=== PATIENT | female | born 1975 | race Two or more races ===

== ENCOUNTER 2021-07-12 13:16 | Inpatient (IN) | payer MEDICAID, OTHER ==
[~2021-07-12] VITALS: Ht 154.9 cm; Wt 107.1 kg
[2021-07-12] MEDS ORDERED: AZITHROMYCIN 500MG/ 250ML 250 ML IV ONE (14:30)
[2021-07-12] MEDS ORDERED: ALBUTEROL SULF 2.5 MG/0.5ML(0.5%) NEB SOLN NEB ONE (14:30)
[2021-07-12] MEDS ORDERED: IPRATROPIUM BROM 0.5 MG/2.5ML INH SOL NEB ONE (14:30)
[2021-07-12] MEDS ORDERED: DexAMETHasone SOD PHOS 10MG/1ML VIAL INJ IV ONE (14:30)
[2021-07-12 15:06] LABS: Basophils # (auto) 0 10 ^3/uL (0-0.2); Basophils % (auto) 0.4 % (0.0-2.0); Eosinophils # (auto) 0 10 ^3/uL (0-0.8); Hematocrit 41.3 % (36.0-46.0); Hemoglobin 13.6 g/dL (12.2-16.2); Lymphocytes # (auto) 0.6 10 ^3/uL (0.4-5.4); Lymphocytes % (auto) 8.7 % (10.0-50.0); Mean Corpuscular Hemoglobin 28.5 pg (28.0-32.0); Mean Corpuscular Hgb Conc. 32.9 g/dL (32.0-36.0); Mean Corpuscular Volume 86.6 fL (80.0-100.0); Monocytes # (auto) 0.5 10 ^3/uL (0-1.3); Monocytes % (auto) 7.6 % (0.0-12.0); Neutrophils # (auto) 5.3 10 ^3/uL (1.6-8.6); Neutrophils % (auto) 83.3 % (37.0-80.0); Nucleated Red Blood Cells % 0.1 %; Red Blood Cells 4.77 10^6/uL (4.0-5.20); Red Cell Distribution Width 13.8 % (11.8-14.3); White Blood Cell 6.4 10^3/uL (4.4-10.8)
[2021-07-12 15:22] LABS: Albumin 3.3 g/dL (3.4-5.0); BUN/Creatinine Ratio 11.6; Calcium 8.3 mg/dL (8.5-10.1); Potassium 3.5 mmol/L (3.5-5.1)
[2021-07-12 15:24] LABS: Bilirubin, Total 0.2 mg/dL (0.2-1.0); Total Protein 8.5 g/dL (6.4-8.2)
[2021-07-12] MEDS ORDERED: HYDROcodone-ACET 5/325MG TAB PO PRN (17:45)
[2021-07-12] MEDS ORDERED: ACETAMINOPHEN 325 MG TAB PO PRN (17:45)
[2021-07-12] MEDS ORDERED: ALUM & MAG HYDROX-SIMETH LIQ(MAALOX) 30 ML PO PRN (17:45)
[2021-07-12] MEDS ORDERED: NITROGLYCERIN 0.4 MG SL TAB SL PRN (17:45)
[2021-07-12] MEDS ORDERED: REMDESIVIR PER PHARMACY 0 ML IV SCH (17:45)
[2021-07-12] MEDS ORDERED: DEXTROSE (50%) 50ML SYRG IV PRN (17:45)
[2021-07-12] MEDS ORDERED: ONDANSETRON HCL 4 MG/2 ML VIAL IV PRN (17:45)
[2021-07-12] MEDS ORDERED: DOCUSATE SOD 100 MG CAP PO PRN (17:45)
[2021-07-12] MEDS ORDERED: MORPHINE SULFATE INJECTION 2 MG/ML SYRG IV PRN ×2 (17:45)
[2021-07-12] MEDS ORDERED: ACETAMINOPHEN 500 MG TAB PO PRN (17:45)
[2021-07-12] MEDS: SODIUM CHLORIDE 0.9% 1,000 ML IV SCH ×2 (19:41→19:51)
[2021-07-12 20:14] LABS: Magnesium 2.4 mg/dL (1.6-2.6)
[2021-07-12 20:23] LABS: CRP High Sensitivity 3.54 mg/dL (< 0.3)
[2021-07-12 20:31] LABS: Thyroid Stimulating Hormone 0.83 uIU/mL (0.358-3.74)
[2021-07-12] MEDS: BUDESONIDE (INHALATION) 180 MCG IH IN SCH (20:44)
[2021-07-12] MEDS ORDERED: REMDESIVIR 200 MG in NS 210ml LOADING DOSE ADULT IV ONE (21:00)
[2021-07-12] MEDS: ACCU-CHEK COMFORT CURVE STRIP VI SCH (22:40)
[2021-07-12] MEDS: InsuLIN REG 1unit/0.01ml Soln (100units/ml) SC SCH (22:49)
[2021-07-12] MEDS: ENOXAPARIN SOD 40 MG/0.4 ML SYRINGE SC SCH (22:50)
[2021-07-12] MEDS: FAMOTIDINE 20 MG TAB PO SCH (22:50)
[2021-07-13 04:47] VITALS: BP 122/57
[2021-07-13] MEDS: ACCU-CHEK COMFORT CURVE STRIP VI SCH ×4 (06:58→21:39)
[2021-07-13] MEDS: InsuLIN REG 1unit/0.01ml Soln (100units/ml) SC SCH ×4 (07:02→21:48)
[2021-07-13] MEDS ORDERED: METO25TA93 PO (07:37)
[2021-07-13] MEDS ORDERED: METF-370 PO (07:37)
[2021-07-13] MEDS ORDERED: LOSA-39 PO (07:37)
[2021-07-13 07:59] LABS: Basophils # (auto) 0 10 ^3/uL (0-0.2); Basophils % (auto) 0.1 % (0.0-2.0); Eosinophils # (auto) 0 10 ^3/uL (0-0.8); Hematocrit 39.4 % (36.0-46.0); Hemoglobin 13.1 g/dL (12.2-16.2); Lymphocytes % (auto) 15.7 % (10.0-50.0); Mean Corpuscular Hemoglobin 28.5 pg (28.0-32.0); Mean Corpuscular Hgb Conc. 33.3 g/dL (32.0-36.0); Mean Corpuscular Volume 85.6 fL (80.0-100.0); Monocytes # (auto) 0.7 10 ^3/uL (0-1.3); Monocytes % (auto) 10.6 % (0.0-12.0); Neutrophils # (auto) 4.6 10 ^3/uL (1.6-8.6); Neutrophils % (auto) 73.6 % (37.0-80.0); Nucleated Red Blood Cells % 0.1 %; Red Cell Distribution Width 13.5 % (11.8-14.3); White Blood Cell 6.2 10^3/uL (4.4-10.8)
[2021-07-13 08:00] LABS: Potassium 3.9 mmol/L (3.5-5.1)
[2021-07-13 08:05] LABS: Albumin 3.1 g/dL (3.4-5.0); BUN/Creatinine Ratio 19.2; Bilirubin, Total 0.5 mg/dL (0.2-1.0); Total Protein 7.2 g/dL (6.4-8.2)
[2021-07-13 09:00] VITALS: BP 145/83
[2021-07-13] MEDS: BUDESONIDE (INHALATION) 180 MCG IH IN SCH ×2 (09:38→22:00)
[2021-07-13] MEDS: DexAMETHasone SOD PHOS 10MG/1ML VIAL INJ IV SCH (09:55)
[2021-07-13] MEDS: ZINC SULFATE 220mg CAP or TAB PO SCH (09:55)
[2021-07-13] MEDS: CHOLECALCIFEROL (VITD3) 2,000 UNIT CAP/TAB PO SCH (09:56)
[2021-07-13] MEDS: ASCORBIC ACID 1,000 MG TAB PO SCH (09:56)
[2021-07-13] MEDS: FAMOTIDINE 20 MG TAB PO SCH ×2 (09:56→21:38)
[2021-07-13] MEDS: ENOXAPARIN SOD 40 MG/0.4 ML SYRINGE SC SCH ×2 (09:57→21:38)
[2021-07-13] MEDS ORDERED: AZITHROMYCIN 500MG/ 250ML 250 ML IV SCH (10:00)
[2021-07-13] MEDS: cefTRIAXone 1GM/50ML D5W 50 ML IV SCH (10:08)
[2021-07-13] MEDS: AZITHROMYCIN 500MG/ 250ML 250 ML IV SCH (11:13)
[2021-07-13] MEDS ORDERED: LOSARTAN POTASSIUM 50 MG TAB PO ONE (11:45)
[2021-07-13] MEDS ORDERED: METOPROLOL SUCCINATE XL 50 MG TAB PO ONE (11:45)
[2021-07-13 13:00] VITALS: BP 132/61
[2021-07-13] MEDS: REMDESIVIR 100mg 100 MG in SODIUM CHL 0.9% 230 ML IV SCH (16:43)
[2021-07-13 17:00] VITALS: BP 119/63
[2021-07-13] MEDS: SODIUM CHLORIDE 0.9% 1,000 ML IV SCH (21:40)
[2021-07-13 22:00] VITALS: BP 136/74
[2021-07-14] MEDS: ALBUTEROL SULF HFA 90MCG INH 200DOSE IN PRN ×2 (01:31→11:49)
[2021-07-14 05:00] VITALS: BP 127/59
[2021-07-14] MEDS: ACCU-CHEK COMFORT CURVE STRIP VI SCH ×4 (06:05→21:42)
[2021-07-14] MEDS: InsuLIN REG 1unit/0.01ml Soln (100units/ml) SC SCH ×4 (06:05→21:49)
[2021-07-14 06:52] LABS: Potassium 3.5 mmol/L (3.5-5.1)
[2021-07-14 06:59] LABS: Albumin 2.8 g/dL (3.4-5.0); BUN/Creatinine Ratio 21.1; Calcium 8.4 mg/dL (8.5-10.1)
[2021-07-14 07:01] LABS: Bilirubin, Total 0.3 mg/dL (0.2-1.0); Total Protein 7.4 g/dL (6.4-8.2)
[2021-07-14 09:00] VITALS: BP 134/69
[2021-07-14] MEDS ORDERED: METOPROLOL SUCCINATE XL 50 MG TAB PO SCH (10:00)
[2021-07-14] MEDS: cefTRIAXone 1GM/50ML D5W 50 ML IV SCH (10:17)
[2021-07-14] MEDS: DexAMETHasone SOD PHOS 10MG/1ML VIAL INJ IV SCH (10:17)
[2021-07-14] MEDS: LOSARTAN POTASSIUM 50 MG TAB PO SCH (10:18)
[2021-07-14] MEDS: FAMOTIDINE 20 MG TAB PO SCH ×2 (10:18→21:42)
[2021-07-14] MEDS: ENOXAPARIN SOD 40 MG/0.4 ML SYRINGE SC SCH ×2 (10:19→21:42)
[2021-07-14] MEDS: ASCORBIC ACID 1,000 MG TAB PO SCH (10:19)
[2021-07-14] MEDS: LORazepam 0.5 MG TAB PO PRN ×2 (10:19→21:49)
[2021-07-14] MEDS: CHOLECALCIFEROL (VITD3) 2,000 UNIT CAP/TAB PO SCH (10:19)
[2021-07-14] MEDS: ZINC SULFATE 220mg CAP or TAB PO SCH (10:28)
[2021-07-14] MEDS: AZITHROMYCIN 500MG/ 250ML 250 ML IV SCH (10:28)
[2021-07-14] MEDS: BUDESONIDE (INHALATION) 180 MCG IH IN SCH ×2 (11:48→23:43)
[2021-07-14] MEDS ORDERED: GLUCAGON HYDROCHLORIDE (RDNA) 1 MG VIAL IV ONE ×2 (12:15→12:45)
[2021-07-14 13:00] VITALS: BP 133/75
[2021-07-14 17:00] VITALS: BP 127/74
[2021-07-14] MEDS: REMDESIVIR 100mg 100 MG in SODIUM CHL 0.9% 230 ML IV SCH (17:12)
[2021-07-14 22:00] VITALS: BP 130/77
[2021-07-15] MEDS: SODIUM CHLORIDE 0.9% 1,000 ML IV SCH (00:31)
[2021-07-15] MEDS: LORazepam 0.5 MG TAB PO PRN ×2 (04:20→19:15)
[2021-07-15 05:27] VITALS: BP 110/64
[2021-07-15] MEDS: InsuLIN REG 1unit/0.01ml Soln (100units/ml) SC SCH ×4 (06:31→21:33)
[2021-07-15] MEDS: ACCU-CHEK COMFORT CURVE STRIP VI SCH ×4 (06:31→21:31)
[2021-07-15] MEDS: BUDESONIDE (INHALATION) 180 MCG IH IN SCH ×2 (06:50→19:43)
[2021-07-15 07:46] LABS: Basophils # (auto) 0 10 ^3/uL (0-0.2); Basophils % (auto) 0.3 % (0.0-2.0); Eosinophils # (auto) 0 10 ^3/uL (0-0.8); Hematocrit 38.2 % (36.0-46.0); Hemoglobin 12.6 g/dL (12.2-16.2); Lymphocytes # (auto) 1.2 10 ^3/uL (0.4-5.4); Lymphocytes % (auto) 9.5 % (10.0-50.0); Mean Corpuscular Hemoglobin 28.3 pg (28.0-32.0); Mean Corpuscular Hgb Conc. 33.1 g/dL (32.0-36.0); Mean Corpuscular Volume 85.3 fL (80.0-100.0); Monocytes # (auto) 1.1 10 ^3/uL (0-1.3); Monocytes % (auto) 8.6 % (0.0-12.0); Neutrophils # (auto) 10.6 10 ^3/uL (1.6-8.6); Neutrophils % (auto) 81.6 % (37.0-80.0); Red Blood Cells 4.47 10^6/uL (4.0-5.20); Red Cell Distribution Width 13.5 % (11.8-14.3)
[2021-07-15] MEDS: ALBUTEROL SULF HFA 90MCG INH 200DOSE IN PRN ×2 (08:36→19:43)
[2021-07-15 08:48] VITALS: BP 133/67
[2021-07-15 09:12] LABS: Albumin 2.7 g/dL (3.4-5.0); Calcium 7.9 mg/dL (8.5-10.1); Potassium 3.7 mmol/L (3.5-5.1)
[2021-07-15 09:14] LABS: BUN/Creatinine Ratio 23.5
[2021-07-15 09:17] LABS: Bilirubin, Total 0.4 mg/dL (0.2-1.0); Total Protein 6.6 g/dL (6.4-8.2)
[2021-07-15] MEDS: cefTRIAXone 1GM/50ML D5W 50 ML IV SCH (11:00)
[2021-07-15] MEDS: ZINC SULFATE 220mg CAP or TAB PO SCH (11:00)
[2021-07-15] MEDS: DexAMETHasone SOD PHOS 10MG/1ML VIAL INJ IV SCH (11:00)
[2021-07-15] MEDS: LOSARTAN POTASSIUM 50 MG TAB PO SCH (11:01)
[2021-07-15] MEDS: ASCORBIC ACID 1,000 MG TAB PO SCH (11:01)
[2021-07-15] MEDS: CHOLECALCIFEROL (VITD3) 2,000 UNIT CAP/TAB PO SCH (11:01)
[2021-07-15] MEDS: FAMOTIDINE 20 MG TAB PO SCH ×2 (11:01→21:31)
[2021-07-15] MEDS: ENOXAPARIN SOD 40 MG/0.4 ML SYRINGE SC SCH ×2 (11:02→21:31)
[2021-07-15] MEDS: AZITHROMYCIN 500MG/ 250ML 250 ML IV SCH (12:34)
[2021-07-15 12:56] VITALS: BP 133/70
[2021-07-15] MEDS: REMDESIVIR 100mg 100 MG in SODIUM CHL 0.9% 230 ML IV SCH (15:45)
[2021-07-15 17:00] VITALS: BP 144/69
[2021-07-15 22:00] VITALS: BP 128/62
[2021-07-16 05:27] VITALS: BP 120/52
[2021-07-16] MEDS: ALBUTEROL SULF HFA 90MCG INH 200DOSE IN PRN ×2 (06:01→20:17)
[2021-07-16] MEDS: BUDESONIDE (INHALATION) 180 MCG IH IN SCH ×2 (06:01→20:17)
[2021-07-16] MEDS: InsuLIN REG 1unit/0.01ml Soln (100units/ml) SC SCH ×4 (06:36→21:42)
[2021-07-16] MEDS: ACCU-CHEK COMFORT CURVE STRIP VI SCH ×4 (06:36→21:38)
[2021-07-16 07:43] LABS: Basophils # (auto) 0 10 ^3/uL (0-0.2); Basophils % (auto) 0.1 % (0.0-2.0); Eosinophils # (auto) 0 10 ^3/uL (0-0.8); Eosinophils % (auto) 0.1 % (0.0-7.0); Hematocrit 37.7 % (36.0-46.0); Hemoglobin 12.2 g/dL (12.2-16.2); Lymphocytes # (auto) 1.3 10 ^3/uL (0.4-5.4); Lymphocytes % (auto) 12.5 % (10.0-50.0); Mean Corpuscular Hemoglobin 27.6 pg (28.0-32.0); Mean Corpuscular Hgb Conc. 32.4 g/dL (32.0-36.0); Mean Corpuscular Volume 85.4 fL (80.0-100.0); Monocytes # (auto) 1.1 10 ^3/uL (0-1.3); Neutrophils # (auto) 8.1 10 ^3/uL (1.6-8.6); Neutrophils % (auto) 77.3 % (37.0-80.0); Red Blood Cells 4.41 10^6/uL (4.0-5.20); Red Cell Distribution Width 13.3 % (11.8-14.3); White Blood Cell 10.5 10^3/uL (4.4-10.8)
[2021-07-16 07:54] LABS: Albumin 2.4 g/dL (3.4-5.0); BUN/Creatinine Ratio 18.5; Calcium 8.4 mg/dL (8.5-10.1); Potassium 3.4 mmol/L (3.5-5.1)
[2021-07-16 07:56] LABS: Bilirubin, Total 0.4 mg/dL (0.2-1.0); Total Protein 6.8 g/dL (6.4-8.2)
[2021-07-16 09:00] VITALS: BP 128/64
[2021-07-16] MEDS ORDERED: POTASSIUM EFFERVESENT TAB 25 MEQ GT ONE (09:45)
[2021-07-16] MEDS: cefTRIAXone 1GM/50ML D5W 50 ML IV SCH (09:47)
[2021-07-16] MEDS: DexAMETHasone SOD PHOS 10MG/1ML VIAL INJ IV SCH (09:47)
[2021-07-16] MEDS: ZINC SULFATE 220mg CAP or TAB PO SCH (09:47)
[2021-07-16] MEDS: FAMOTIDINE 20 MG TAB PO SCH ×2 (09:54→21:49)
[2021-07-16] MEDS ORDERED: DEXA4TAB90 PO (09:54)
[2021-07-16] MEDS ORDERED: CHOL1CAP47 PO (09:54)
[2021-07-16] MEDS ORDERED: ASCO10003 PO (09:54)
[2021-07-16] MEDS: ASCORBIC ACID 1,000 MG TAB PO SCH (09:54)
[2021-07-16] MEDS: LOSARTAN POTASSIUM 50 MG TAB PO SCH (09:54)
[2021-07-16] MEDS ORDERED: ALBUAER3 IN (09:54)
[2021-07-16] MEDS: CHOLECALCIFEROL (VITD3) 2,000 UNIT CAP/TAB PO SCH (09:55)
[2021-07-16] MEDS: ENOXAPARIN SOD 40 MG/0.4 ML SYRINGE SC SCH ×2 (09:55→21:49)
[2021-07-16] MEDS ORDERED: POTASSIUM EFFERVESENT TAB 25 MEQ PO ONE (10:15)
[2021-07-16] MEDS: AZITHROMYCIN 500MG/ 250ML 250 ML IV SCH (11:29)
[2021-07-16 13:00] VITALS: BP 104/62
[2021-07-16] MEDS: REMDESIVIR 100mg 100 MG in SODIUM CHL 0.9% 230 ML IV SCH (15:04)
[2021-07-16 16:57] VITALS: BP 137/88
[2021-07-16 22:00] VITALS: BP 145/71
[2021-07-17] MEDS: LORazepam 0.5 MG TAB PO PRN (03:11)
[2021-07-17 04:45] VITALS: BP 132/80
[2021-07-17] MEDS: ACCU-CHEK COMFORT CURVE STRIP VI SCH ×2 (06:35→11:21)
[2021-07-17] MEDS: InsuLIN REG 1unit/0.01ml Soln (100units/ml) SC SCH ×2 (06:36→11:33)
[2021-07-17 07:06] LABS: Basophils # (auto) 0 10 ^3/uL (0-0.2); Basophils % (auto) 0.2 % (0.0-2.0); Eosinophils # (auto) 0 10 ^3/uL (0-0.8); Hematocrit 37.3 % (36.0-46.0); Hemoglobin 12.2 g/dL (12.2-16.2); Lymphocytes # (auto) 1.1 10 ^3/uL (0.4-5.4); Lymphocytes % (auto) 13.3 % (10.0-50.0); Mean Corpuscular Hgb Conc. 32.8 g/dL (32.0-36.0); Mean Corpuscular Volume 85.4 fL (80.0-100.0); Monocytes % (auto) 11.2 % (0.0-12.0); Neutrophils # (auto) 6.4 10 ^3/uL (1.6-8.6); Neutrophils % (auto) 75.3 % (37.0-80.0); Red Blood Cells 4.37 10^6/uL (4.0-5.20); Red Cell Distribution Width 13.5 % (11.8-14.3); White Blood Cell 8.6 10^3/uL (4.4-10.8)
[2021-07-17 07:23] LABS: Potassium 3.3 mmol/L (3.5-5.1)
[2021-07-17 07:28] LABS: Albumin 2.5 g/dL (3.4-5.0); BUN/Creatinine Ratio 18.2; Bilirubin, Total 0.4 mg/dL (0.2-1.0); Calcium 8.1 mg/dL (8.5-10.1); Total Protein 6.8 g/dL (6.4-8.2)
[2021-07-17 09:00] VITALS: BP 131/67
[2021-07-17] MEDS: cefTRIAXone 1GM/50ML D5W 50 ML IV SCH (09:00)
[2021-07-17] MEDS: ZINC SULFATE 220mg CAP or TAB PO SCH (09:39)
[2021-07-17] MEDS: DexAMETHasone SOD PHOS 10MG/1ML VIAL INJ IV SCH (09:39)
[2021-07-17] MEDS: ASCORBIC ACID 1,000 MG TAB PO SCH (09:40)
[2021-07-17] MEDS: ENOXAPARIN SOD 40 MG/0.4 ML SYRINGE SC SCH (09:40)
[2021-07-17] MEDS: LOSARTAN POTASSIUM 50 MG TAB PO SCH (09:40)
[2021-07-17] MEDS: CHOLECALCIFEROL (VITD3) 2,000 UNIT CAP/TAB PO SCH (09:40)
[2021-07-17] MEDS: FAMOTIDINE 20 MG TAB PO SCH (09:40)
[2021-07-17] MEDS: BUDESONIDE (INHALATION) 180 MCG IH IN SCH (10:00)
[2021-07-17] MEDS: AZITHROMYCIN 500MG/ 250ML 250 ML IV SCH (10:12)
[2021-07-17] MEDS: ALBUTEROL SULF HFA 90MCG INH 200DOSE IN PRN (11:00)
[2021-07-17 12:59] VITALS: BP 113/54
== END 2021-07-17 15:00 | disposition home or self-care (01) | DRG 137 ==
LOC: ER 13:16 → TELE 17:42 → TELE-EAST 22:10
PROVIDERS: ADMIT Internal Medicine; ATTEND Internal Medicine Pulmonary Disease
PROC: XW033E5 Introduction of Remdesivir Anti-infective into Peripheral Vein, Percutaneous Approach, New Technology Group 5 (ICD-10-PCS; principal; 2021-07-12)
DX: U07.1 COVID-19 (principal); J96.01 Acute respiratory failure with hypoxia; J12.82 Pneumonia due to coronavirus disease 2019; E46 Unspecified protein-calorie malnutrition; J45.51 Severe persistent asthma with (acute) exacerbation; J90 Pleural effusion, not elsewhere classified; E11.9 Type 2 diabetes mellitus without complications; E66.01 Morbid (severe) obesity due to excess calories; E78.5 Hyperlipidemia, unspecified; I10 Essential (primary) hypertension; E78.00 Pure hypercholesterolemia, unspecified; R79.1 Abnormal coagulation profile; Z68.41 Body mass index [BMI] 40.0-44.9, adult
CPT/HCPCS: 36415; 36600; 71045; 80053; 82306; 82728; 82805; 82962; 83036; 83605; 83615; 83735; 84443; 84702; 85025; 85379; 86141; 87040; 87426; 93005; 93306; 93970; 94640; 96365; 96367; 96375; 99291; G0378; J0696; J1100; J1815; J2405; J7042

== ENCOUNTER 2022-08-04 23:08 | Inpatient (IN) | payer MEDICAID ==
[~2022-08-04] VITALS: Ht 154.9 cm; Wt 108.7 kg
[~2022-08-04 23:08] MED LIST: ALBUAER3 IN; ASCO10003 PO; CHOL1CAP47 PO; DEXA4TAB90 PO; LOSA-39 PO; METF-370 PO
[2022-08-04] MEDS ORDERED: amLODIPine BESYLATE 5 MG TAB PO ONE (23:45)
[2022-08-04 23:51] LABS: Basophils # (auto) 0.1 10 ^3/uL (0-0.2); Basophils % (auto) 0.9 % (0.0-2.0); Eosinophils # (auto) 0.1 10 ^3/uL (0-0.8); Eosinophils % (auto) 2.1 % (0.0-7.0); Hematocrit 39.7 % (36.0-46.0); Hemoglobin 13.1 g/dL (12.2-16.2); Lymphocytes # (auto) 2.7 10 ^3/uL (0.4-5.4); Lymphocytes % (auto) 38.4 % (10.0-50.0); Mean Corpuscular Hemoglobin 28.1 pg (28.0-32.0); Monocytes # (auto) 0.8 10 ^3/uL (0-1.3); Monocytes % (auto) 11.3 % (0.0-12.0); Neutrophils # (auto) 3.3 10 ^3/uL (1.6-8.6); Neutrophils % (auto) 47.3 % (37.0-80.0); Red Blood Cells 4.67 10^6/uL (4.0-5.20); Red Cell Distribution Width 14.2 % (11.8-14.3); White Blood Cell 6.9 10^3/uL (4.4-10.8)
[2022-08-04 23:58] LABS: Albumin 3.4 g/dL (3.4-5.0); BUN/Creatinine Ratio 20.3; Calcium 8.8 mg/dL (8.5-10.1); Magnesium 2.1 mg/dL (1.6-2.6); Potassium 3.5 mmol/L (3.5-5.1)
[2022-08-05 00:06] LABS: INR 0.97 (0.9-1.15); Partial Thromboplastin Time 23.5 sec (24.6-33.4)
[2022-08-05 00:12] LABS: Bilirubin, Total 0.2 mg/dL (0.2-1.0)
[2022-08-05] MEDS ORDERED: hydrALAZINE HCL 20 MG/ML VL IV ONE (07:15)
[2022-08-05] MEDS ORDERED: DOCUSATE SOD 100 MG CAP PO PRN (10:00)
[2022-08-05] MEDS ORDERED: MORPHINE SULFATE INJ 2 MG/ml SYRG IV PRN ×2 (10:00)
[2022-08-05] MEDS ORDERED: HYDROcodone-ACET 5/325MG TAB PO PRN (10:00)
[2022-08-05] MEDS ORDERED: ONDANSETRON HCL 4 MG/2 ML VIAL IV PRN (10:00)
[2022-08-05] MEDS ORDERED: DEXTROSE (50%) 50ML SYRG IV PRN (10:00)
[2022-08-05] MEDS ORDERED: NITROGLYCERIN 0.4 MG SL TAB SL PRN (10:00)
[2022-08-05] MEDS ORDERED: LORazepam 0.5 MG TAB PO PRN (10:00)
[2022-08-05] MEDS ORDERED: ALBUTEROL SULF 2.5 MG/0.5ML(0.5%) NEB SOLN NEB ONE (10:00)
[2022-08-05] MEDS ORDERED: MAALOX PLUS or MAALOX 30 ML PO PRN (10:00)
[2022-08-05] MEDS ORDERED: ALBUTEROL MEDNEB 2.5 mg/3ml NEB ONE (10:51)
[2022-08-05] MEDS: LOSARTAN POTASSIUM 50 MG TAB PO SCH (11:22)
[2022-08-05] MEDS: HCTZ 25 MG TAB PO SCH (11:23)
[2022-08-05] MEDS: ACCU-CHEK COMFORT CURVE STRIP VI SCH ×3 (11:57→20:13)
[2022-08-05] MEDS: InsuLIN REG 1unit/0.01ml Soln (100units/ml) SC SCH ×3 (12:01→20:13)
[2022-08-05 14:14] LABS: Urine Bacteria NONE SEEN /hpf (None Seen); Urine Blood 3+ /uL (Negative); Urine WBC 371 /hpf (0 - 5)
[2022-08-05] MEDS: ACETAMINOPHEN 325 MG TAB PO PRN (15:15)
[2022-08-05 23:00] VITALS: BP 165/85
[2022-08-06] MEDS: hydrALAZINE HCL 25 MG TAB PO PRN ×2 (00:20→10:56)
[2022-08-06] MEDS: ACCU-CHEK COMFORT CURVE STRIP VI SCH ×6 (00:23→20:48)
[2022-08-06] MEDS: InsuLIN REG 1unit/0.01ml Soln (100units/ml) SC SCH ×6 (04:07→20:53)
[2022-08-06 05:00] VITALS: BP 137/82
[2022-08-06 07:07] LABS: Basophils # (auto) 0 10 ^3/uL (0-0.2); Basophils % (auto) 0.5 % (0.0-2.0); Eosinophils # (auto) 0.2 10 ^3/uL (0-0.8); Eosinophils % (auto) 2.3 % (0.0-7.0); Hematocrit 43.6 % (36.0-46.0); Hemoglobin 14.9 g/dL (12.2-16.2); Lymphocytes % (auto) 24.9 % (10.0-50.0); Mean Corpuscular Hgb Conc. 34.1 g/dL (32.0-36.0); Mean Corpuscular Volume 84.8 fL (80.0-100.0); Monocytes # (auto) 0.6 10 ^3/uL (0-1.3); Neutrophils # (auto) 5.1 10 ^3/uL (1.6-8.6); Neutrophils % (auto) 65.3 % (37.0-80.0); Nucleated Red Blood Cells % 0.1 %; Red Blood Cells 5.14 10^6/uL (4.0-5.20); Red Cell Distribution Width 13.9 % (11.8-14.3); White Blood Cell 7.9 10^3/uL (4.4-10.8)
[2022-08-06 07:37] LABS: Calcium 8.9 mg/dL (8.5-10.1); Potassium 3.7 mmol/L (3.5-5.1)
[2022-08-06 07:40] LABS: BUN/Creatinine Ratio 15.9
[2022-08-06 09:00] VITALS: BP 132/82
[2022-08-06] MEDS: LOSARTAN POTASSIUM 50 MG TAB PO SCH ×2 (09:28→09:35)
[2022-08-06] MEDS: HCTZ 25 MG TAB PO SCH ×2 (09:29→09:34)
[2022-08-06 13:00] VITALS: BP 140/90
[2022-08-06 17:00] VITALS: BP 125/77
[2022-08-06 22:00] VITALS: BP 142/81
[2022-08-07] MEDS: ACCU-CHEK COMFORT CURVE STRIP VI SCH ×5 (00:06→16:00)
[2022-08-07] MEDS: ACETAMINOPHEN 325 MG TAB PO PRN (00:24)
[2022-08-07] MEDS: InsuLIN REG 1unit/0.01ml Soln (100units/ml) SC SCH ×5 (03:58→16:00)
[2022-08-07 05:00] VITALS: BP 124/78
[2022-08-07] MEDS: HCTZ 25 MG TAB PO SCH (08:57)
[2022-08-07] MEDS: LOSARTAN POTASSIUM 50 MG TAB PO SCH (08:58)
[2022-08-07 09:00] VITALS: BP 108/57
[2022-08-07 13:00] VITALS: BP 124/73
[2022-08-07 15:43] VITALS: BP 108/57
[2022-08-07 17:00] VITALS: BP 120/75
== END 2022-08-07 17:06 | disposition home or self-care (01) | DRG 199 ==
LOC: EDUNIT# 23:08 → ER 23:08 → TELE 08-05 10:21 → EAST 08-05 22:22 → TELE-EAST 08-05 22:27
PROVIDERS: ADMIT Hospitalist; ATTEND Internal Medicine
DX: I16.0 Hypertensive urgency (principal); E11.9 Type 2 diabetes mellitus without complications; E66.01 Morbid (severe) obesity due to excess calories; I10 Essential (primary) hypertension; Z79.899 Other long term (current) drug therapy; Z82.5 Family history of asthma and other chronic lower respiratory diseases; Z83.3 Family history of diabetes mellitus; Z82.49 Family history of ischemic heart disease and other diseases of the circulatory system; Z68.42 Body mass index [BMI] 45.0-49.9, adult
CPT/HCPCS: 36415; 80048; 80053; 81001; 82962; 83735; 83880; 84484; 85025; 85610; 85730; 87426; 93005; 93306; 94640; G0378; J1815

== ENCOUNTER 2023-06-18 09:38 | Emergency (ER) | payer MEDICAID ==
[~2023-06-18] VITALS: Ht 154.9 cm; Wt 106.3 kg
[~2023-06-18 09:38] MED LIST changes: -LOSA-39 PO; +LOSA100T58 PO
[2023-06-18 10:23] VITALS: BP 176/95; PULSE 76; RESP 18; TEMP 98; O2SAT 96
== END 2023-06-18 12:15 | disposition home or self-care (01) ==
LOC: ER 09:38
DX: N64.4 Mastodynia (principal); E11.9 Type 2 diabetes mellitus without complications; E78.5 Hyperlipidemia, unspecified; I10 Essential (primary) hypertension
CPT/HCPCS: 76642; 93005